=== PATIENT | female | born 1970 | race Caucasian/White ===

== ENCOUNTER 2023-04-02 06:18 | Day surgery (SDC) | payer OTHER ==
[2023-03-27 12:29] VITALS: BMI 28.0
[2023-04-02] MEDS ORDERED: ERYTHROMYCIN 0.5% OPHTHALMIC OINTMENT 3.5 GM TUBE ONE (07:11)
[2023-04-02] MEDS ORDERED: BUPIVACAINE HCL/PF 0.5% (5MG/ML) 10 ML VIAL ONE (07:11)
[2023-04-02] MEDS ORDERED: ceFAZolin SODIUM 1 GM VIAL ONE ×2 (07:11→07:26)
[2023-04-02] MEDS ORDERED: LIDOCAINE 1%/EPI 1:100000 (50 ML MULTI DOSE VIAL) ONE (07:11)
[2023-04-02] MEDS ORDERED: TETRACAINE 0.5% OPHTH SOLN 2 ML BOTTLE ONE (07:11)
[2023-04-02] MEDS ORDERED: POVIDONE-IODINE 5% OPHTHALMIC PREP 30 ML SOLUTION ONE (07:11)
[2023-04-02] MEDS ORDERED: PROPOFOL 40 ML ONE (07:26)
[2023-04-02] MEDS ORDERED: ONDANSETRON 4 MG/2 ML VIAL ONE (07:26)
[2023-04-02] MEDS ORDERED: DEXAMETHASONE SOD PHOSPHATE 4 MG/1 ML VIAL ONE (07:26)
[2023-04-02] MEDS ORDERED: MIDAZOLAM HCL 2 MG/2 ML SINGLE DOSE VIAL ONE ×2 (07:27→07:46)
[2023-04-02] MEDS ORDERED: PROPOFOL 20 ML ONE (08:12)
[2023-04-02] MEDS ORDERED: ONDANSETRON 4 MG/2 ML VIAL IVPUSH PRN (09:03)
[2023-04-02] MEDS ORDERED: oxyCODONE HCL 5 MG TABLET PO PRN (09:03)
[2023-04-02] MEDS ORDERED: LACTATED RINGERS SOLUTION 1,000 ML IV SCH (09:15)
[2023-04-02 09:42] VITALS: RESP 16; TEMP 96.6
[2023-04-02 10:20] VITALS: BP 143/82; PULSE 62
== END 2023-04-02 10:10 | disposition home or self-care (01) ==
LOC: FASU 06:18
PROVIDERS: ATTEND Ophthalmology
PROC: 08SR0ZZ Reposition Left Lower Eyelid, Open Approach (ICD-10-PCS; principal; 2023-04-02 08:07)
DX: H02.89 Other specified disorders of eyelid (principal); C44.1192 Basal cell carcinoma of skin of left lower eyelid, including canthus
CPT/HCPCS: 94760